=== PATIENT | male | born 1980 | race African-American/Black ===

== ENCOUNTER 2025-02-03 06:12 | Day surgery (SDC) | payer SELFPAY ==
[2025-02-03] MEDS ORDERED: Sodium Chloride 0.9% 10 ML Syringe FLUSH PRN (06:32)
[2025-02-03 06:35] LABS: BASOPHILS ABSOLUTE AUTO 0.0 K/mm3 (0.0-0.2); BASOPHILS PERCENT AUTO 0.3 % (0.0-1.0); EOSINOPHILS ABSOLUTE AUTO 0.1 K/mm3 (0.0-0.4); EOSINOPHILS PERCENT AUTO 1.1 % (0.0-6.0); IMMATURE GRAN ABSOLUTE AUTO 0.06 K/mm3 (0.00-0.05); IMMATURE GRAN PERCENT AUTO 0.5 % (0.0-0.4); LYMPHOCYTES ABSOLUTE AUTO 1.6 K/mm3 (1.0-4.8); LYMPHOCYTES PERCENT AUTO 13.4 % (24.0-44.0); MEAN PLATELET VOLUME 10.3 fl (9.4-12.4); MONOCYTES ABSOLUTE AUTO 0.8 K/mm3 (0.0-0.8); MONOCYTES PERCENT AUTO 6.4 % (0.0-8.0); NEUTROPHILS ABSOLUTE AUTO 9.6 K/mm3 (1.8-7.7); NEUTROPHILS PERCENT AUTO 78.3 % (41.0-71.0); NRBC ABSOLUTE 0.00 (0.00-0.02); NRBC PERCENT 0.0 % (0.0-0.2); PLATELET COUNT,PLT 173 K/mm3 (150-400); RED BLOOD CELL COUNT 5.90 M/mm3 (4.52-5.90); WHITE BLOOD CELL COUNT,WBC 12.26 K/mm3 (3.9-11.3)
[2025-02-03] MEDS: Ondansetron 4 MG/2 ML SDV IVPUSH ONE (06:37)
[2025-02-03 06:55] LABS: A/G RATIO 1.1 (1-2); ALANINE AMINOTRANSFERASE,ALT 25.0 U/L (16-63); ASPARTATE AMNIOTRANSFERASE,AST 16.0 U/L (15-37); BILIRUBIN TOTAL 0.6 mg/dL (0.2-1.0); BLOOD UREA NITROGEN,BUN 16.0 mg/dL (7-18); CARBON DIOXIDE,CO2 32.0 mEq/L (21-32); CHLORIDE,CL 99.0 mEq/L (98-107); CREATININE 1.1 mg/dL (0.7-1.3); EST CRCL DRUG DOSING (CG) 73.54 mL/min; ESTIMATED GFR 84.0 mL/min (>60); GLUCOSE RANDOM 126.0 mg/dL (70-99); POTASSIUM,K 2.7 mEq/L (3.5-5.1); PROTEIN TOTAL,TP 8.0 g/dl (6.4-8.2); SODIUM,NA 140.0 mEq/L (136-145)
[2025-02-03] MEDS: Iopamidol 612 MG/ML 100 ML Bottle IVPUSH ONE (06:56)
[2025-02-03] MEDS: Sodium Chloride 0.9% 10 ML Syringe FLUSH PRN (06:56)
[2025-02-03 08:14] LABS: APPEARANCE,URINE CLEAR (Clear); GLUCOSE,URINE NEGATIVE (Negative); OCCULT BLOOD,URINE NEGATIVE (Negative)
[2025-02-03 08:33] LABS: SQUAMOUS EPITHELIAL CELLS,UR 0-5 /hpf (0-5)
[2025-02-03] MEDS: Lactated Ringers 1,000 ML IV ONE (08:50)
[2025-02-03] MEDS ORDERED: propofoL 500 MG/50 ML 50 ML ONE (09:21)
[2025-02-03] MEDS ORDERED: Dexamethasone 4 MG/ML 5 ML MDV ONE (09:21)
[2025-02-03] MEDS ORDERED: Midazolam 1 MG/ML 2 ML SDV ONE (09:21)
[2025-02-03] MEDS ORDERED: fentaNYL 250 MCG/5 ML SDV ONE (09:21)
[2025-02-03] MEDS ORDERED: Ketamine HCL/NACL, ISO-OSM 50 MG/5 ML Syringe ONE (09:21)
[2025-02-03] MEDS ORDERED: Lactated Ringers 1,000 ML ONE (10:12)
[2025-02-03] MEDS ORDERED: Naloxone 0.4 MG/ML SDV ONE (10:41)
[2025-02-03] MEDS: EPINEPHrine 1 MG/ML SDV ONE (11:08)
[2025-02-03] MEDS ORDERED: Ondansetron 4 MG/2 ML SDV IVPUSH PRN (11:17)
[2025-02-03] MEDS ORDERED: fentaNYL 100 MCG/2 ML SDV IVPUSH PRN (11:17)
== END 2025-02-03 15:09 | disposition home or self-care (01) ==
LOC: JD.ED 06:12 → JD.SDS 08:20
PROVIDERS: ATTEND Surgery
DX: K35.30 Acute appendicitis with localized peritonitis, without perforation or gangrene (principal)
CPT/HCPCS: 36415; 44970; 74177; 80053; 81001; 83690; 84132; 85025; 96361; 96365; 96367; 96375; 99285; J0169; J0665; J0694; J1100; J2003; J2250; J2312; J2405; J2543; J2704; J3010; J3480; J7030; J7120; Q9967; 00840; 99140; J1171; J3490